=== PATIENT | female | born 1990 | race African-American/Black ===

== ENCOUNTER 2019-07-04 11:58 | Inpatient (IN) | payer OTHER ==
[2019-07-04] MEDS ORDERED: Azithromycin 500 MG VIAL ONE (12:35)
[2019-07-04 12:50] VITALS: BMI 35.9
--- NOTE | 2019-07-04 12:50 | HP ---
TIME OF ADMISSION: 1225 hours. REASON FOR ADMISSION: Rupture of membranes, active labor, 38 weeks' gestation, prior section x3. HISTORY OF PRESENT ILLNESS: Ms. Castillo is a 29-year-old, G4, P3. She had limited OB care with myself at [facility] early in with one visit at 23 weeks' gestation. She had care for the rest of her in [facility] after returning for an illness with her mother. She reports rupture of membranes and contractions and is noted on initial exam to be 5 to 6 cm and in active labor with a category 1 tracing. DRIVING SCHOOL INSTRUCTOR HISTORY: Noted. The patient had three prior sections at 13, 15, and 18. Initial one was for suspected macrosomia and unfavorable cervix by myself at [place], 8 pounds 14 ounces infant. Subsequent infants were 9 pounds 8 ounces and 9 pounds 10 ounces. They were delivered in [place]. The patient's blood type is O positive, antibody negative. Group B strep not done. Rubella immune. VDRL nonreactive. Hepatitis B, GC and chlamydia negative. 50 g is normal by her report. The patient had a positive urine drug screen for cannabinoids in early . PAST MEDICAL HISTORY: Denies. PAST SURGICAL HISTORY: C-sections and ACL. ALLERGIES: DENIES. MEDICATIONS: vitamins. SOCIAL HISTORY: Denies tobacco, alcohol, or IV drug use. FAMILY HISTORY: Noncontributory. REVIEW OF SYSTEMS: Noncontributory. PHYSICAL EXAMINATION: GENERAL: Black female, in no acute distress. VITAL SIGNS: Temperature 98.8, respirations 18, blood pressure 132/85, and pulse 85. HEENT: Within normal limits. LUNGS: Clear to auscultation bilaterally. HEART: Regular rhythm. ABDOMEN: Soft and nontender. Estimated weight 9.5 pounds. GENITOURINARY: Vulva without lesions. Vagina, bloody discharge and clear fluid. Cervix; 6, 80, -1, cephalic. EXTREMITIES: Without clubbing, cyanosis, or edema. monitoring reveals category 1 tracing with pulse in the 150s with positive accelerations, no decelerations, and active contractions. IMPRESSION: Prior section at 38 to 39 weeks' gestation by reasonable criteria with active labor and rupture of membranes. PLAN: Repeat section. Zithromax and Ancef for antibiotic prophylaxis per protocol. DVT prophylaxis with sequential compression devices. Job ID: [id number]
[2019-07-04] MEDS ORDERED: hydrALAZINE 20 MG/ML VIAL SLOW IVP PRN ×2 (12:52→17:05)
[2019-07-04] MEDS ORDERED: Lactated Ringer's 1,000 ML IV SCH ×2 (12:52)
[2019-07-04] MEDS ORDERED: Promethazine HCl 25 MG/ML VIAL IM PRN ×3 (12:52→17:05)
[2019-07-04] MEDS ORDERED: Ondansetron PF 4 MG/2 ML Vial IVP PRN ×3 (12:52→17:05)
[2019-07-04] MEDS ORDERED: Butorphanol Tartrate 1 MG/ML VIAL SLOW IVP PRN (12:52)
[2019-07-04] MEDS ORDERED: CEFAZOLIN 2 GM in Premix Bag 1 BAG IVPB ONE (13:00)
[2019-07-04] MEDS ORDERED: Azithromycin 500 MG in Sodium Chloride 0.9% 250 ML 250 ML IVPB SCH (13:00)
[2019-07-04] MEDS ORDERED: Bicitra 30 ML UDCUP PO SCH (13:00)
[2019-07-04] MEDS ORDERED: Dexamethasone 4 mg/ml Vial ONE (13:08)
[2019-07-04] MEDS ORDERED: MORPHINE 5 MG/10 ML PF VIAL ONE (13:08)
[2019-07-04] MEDS ORDERED: Oxytocin 10 UNITS/ML VIAL ONE ×2 (13:08→14:00)
[2019-07-04] MEDS ORDERED: PHENYLEPHRINE-NS 100 MCG/ML 10 ML SYRINGE ONE (13:08)
[2019-07-04] MEDS ORDERED: Ondansetron PF 4 MG/2 ML Vial ONE (13:08)
[2019-07-04 13:11] LABS: Hemoglobin 11.3 g/dL (12.0-16.0); Mean Corpuscular HGB CONC 34.1 g/dL (32.0-36.0); Mean Corpuscular Hemoglobin 32.8 pg (27.0-31.0); Mean Corpuscular Volume 96.2 fL (78.0-98.0); Mean Platelet Volume 6.9 fL (7.4-10.4); Platelet Count 160 thou/uL (130-400); RBC Distribution Width 11.9 % (11.5-14.5); Red Blood Cell (RBC) Count 3.43 mill/uL (4.20-5.40); White Blood Cell (WBC) Count 11.6 thou/uL (4.8-10.8)
[2019-07-04] MEDS ORDERED: FLU VACC QS2019-20(6MOS UP)/PF 60 MCG/0.5 ML SYRINGE IM ONE (13:15)
[2019-07-04 13:49] LABS: HBSAg Index 0.16 S/CO (0-0.99); Hep B Surf Ag Non-Reactive S/CO (NonReactive); Syphilis Antibody Nonreactive (Nonreactive)
[2019-07-04 13:55] LABS: HIV (1/2) Antibody/Antigen Non-Reactive (NonReactive)
[2019-07-04] MEDS ORDERED: HYDROmorphone 2 MG/ML VIAL SLOW IVP PRN (14:17)
[2019-07-04] MEDS ORDERED: L&D-Morphine 4 MG/ML VIAL SLOW IVP PRN (14:17)
[2019-07-04] MEDS ORDERED: diphenhydrAMINE 50 MG/ML VIAL IVP PRN (14:17)
[2019-07-04] MEDS ORDERED: Promethazine HCl 25 MG SUPP PR PRN (14:17)
[2019-07-04] MEDS ORDERED: Meperidine HCl/PF 25 MG/ML VIAL SLOW IVP PRN (14:17)
[2019-07-04] MEDS ORDERED: Naloxone HCl 0.4 mg/ml Vial IVP PRN ×2 (14:17)
[2019-07-04] MEDS ORDERED: Naloxone HCl 0.4 mg/ml Vial IV PRN (14:17)
[2019-07-04] MEDS ORDERED: Ondansetron HCl/PF 4 MG/2 ML Vial IVP PRN (14:17)
[2019-07-04] MEDS ORDERED: Communication Order-Pharmacy FS SCH (14:30)
[2019-07-04] MEDS ORDERED: Ketorolac Tromethamine 30 MG/ML VIAL IVP SCH (14:30)
[2019-07-04 14:41] LABS: Medtox Reader # READER 4
[2019-07-04 14:42] LABS: Amphetamine Not Detected (NotDetected); Barbiturates Screen Not Detected (NotDetected); Benzodiazepine Screen Not Detected (NotDetected); Cocaine Metabolite Screen Not Detected (NotDetected); Medtox Control Line Valid? VALID (VALID); Methadone Not Detected (NotDetected); Methamphetamine Not Detected (NotDetected); Opiate Screen Not Detected (NotDetected); Oxycodone Screen Not Detected (NotDetected); Phencyclidine (PCP) Not Detected (NotDetected); THC/Cannabinoid Screen Not Detected (NotDetected); Tricyclic Screen Not Detected (NotDetected)
--- NOTE | 2019-07-04 15:03 | OP ---
DATE OF PROCEDURE: 07/04/2019 PREOPERATIVE DIAGNOSIS: 38-39 weeks gestation, prior section x3 with rupture of membranes, in active labor. POSTOPERATIVE DIAGNOSIS: 38-39 weeks gestation, prior section x3 with rupture of membranes, in active labor. PROCEDURE PERFORMED: Repeat low-transverse section without extension. INSULATION BOARD HEAD SAW OPERATOR: Obed Crowell, PGY-3 [address] [facility]. ANESTHESIA: Subarachnoid block, Jermain Olivo MD BLOOD LOSS: EBL pending. MEDICATIONS: 2 g Ancef and 500 Zithromax pre-incision. DVT PROPHYLAXIS: SCDs. DRAINS: Browne to gravity. SPECIMENS REMOVED: Placenta with three-vessel cord. No pathology. OPERATIVE FINDINGS: 1. Vigorous male , cephalic presentation, 8 and 9 , 7 pounds 9 ounces, to nursery. 2. Normal-appearing uterus, tubes, and ovaries bilaterally. 3. Hemostasis, clear urine. COUNTS: Correct at the end of the procedure. DISPOSITION: To recovery room, in good condition. DESCRIPTION OF PROCEDURE: The patient presented in active labor with spontaneous rupture of membranes. She had limited care in [place] but reported she had unremarkable care in [facility]. She was taken to the operating room, where subarachnoid block was achieved without difficulty. She was prepped and draped in the usual manner. Previous Pfannenstiel incision incised sharply and carried down the fascia, was extended superiorly and laterally with curved Paul scissors. Rectus was dissected off sharply, superiorly, and inferiorly, divided in the midline, peritoneum entered bluntly taking care to avoid trauma to the underlying viscera. Zachary O retractor placed inside vesicouterine peritoneal fold, identified an active lower uterine segment, identified low-transverse hysterotomy, incision made above the level of the vesicouterine peritoneal fold and extended superiorly and laterally with finger fractionation. was noted to be in OP presentation and head was elevated in the hysterotomy, the rest of the infant delivered. Cord clamped, cut, and handed off to Dr. Samia Bear, choir singer in attendance. Usual cord blood sample was obtained. The placenta was removed manually and the uterus was left inside the abdomen. Hysterotomy was noted to be without extension and closed using a running locking #1 Monocryl suture x1 layer. The gutters were irrigated out bilaterally and reinspection of the hysterotomy revealed it to be dry. The Zachary O retractor was removed. Rectus was inspected, noted to be dry. Counts were correct x1. Fascia reapproximated using running continuous 0 PDS suture x2. Subcutaneous tissue irrigated, rendered hemostatic with Bovie cautery, reapproximated using a 2-0 plain gut, skin reapproximated using a 4-0 Monocryl subcuticular and Dermabond. The patient was taken to recovery room in good condition. Job ID: [id number]
[2019-07-04] MEDS ORDERED: Ketorolac Tromethamine 30 MG/ML VIAL ONE (15:47)
[2019-07-04] MEDS: Ketorolac Tromethamine 30 MG/ML VIAL IVP PRN ×2 (15:49→22:05)
[2019-07-04] MEDS ORDERED: Acetaminophen 325 MG TAB PO PRN (17:05)
[2019-07-04] MEDS ORDERED: Lanolin Ointment 7 GM TUBE TOP PRN (17:05)
[2019-07-04] MEDS ORDERED: Bisacodyl 10 MG SUPP PR PRN (17:05)
[2019-07-04] MEDS ORDERED: NS / Oxytocin 40 units/1000ml 1,000 ML IV SCH (17:05)
[2019-07-04] MEDS ORDERED: Adacel (T-DAP) 0.5 ML SYRINGE IM ONE (17:05)
[2019-07-04] MEDS ORDERED: diphenhydrAMINE 25 MG CAP PO PRN (17:05)
[2019-07-04] MEDS: Lactated Ringer's 1,000 ML IV SCH (17:28)
[2019-07-04] MEDS: Simethicone Chewable 80 MG TAB PO PRN (22:01)
[2019-07-04] MEDS: Docusate Calcium (SURFAK) 240 MG CAP PO SCH (22:01)
[2019-07-05] MEDS ORDERED: Zolpidem Tartrate 5 MG TAB PO PRN (02:30)
[2019-07-05] MEDS: HYDROcodone/Acetaminophen 5/325 mg Tablet PO PRN ×6 (03:39→21:53)
[2019-07-05] MEDS: Lactated Ringer's 1,000 ML IV SCH ×3 (03:48→16:48)
[2019-07-05] MEDS: Simethicone Chewable 80 MG TAB PO PRN ×3 (05:04→19:24)
[2019-07-05] MEDS: Ibuprofen 800 MG TAB PO SCH ×3 (05:04→21:53)
[2019-07-05 06:35] LABS: Hemoglobin 9.7 g/dL (12.0-16.0); Mean Corpuscular HGB CONC 34.3 g/dL (32.0-36.0); Mean Corpuscular Hemoglobin 33.2 pg (27.0-31.0); Mean Platelet Volume 6.9 fL (7.4-10.4); Platelet Count 128 thou/uL (130-400); RBC Distribution Width 12.1 % (11.5-14.5); Red Blood Cell (RBC) Count 2.93 mill/uL (4.20-5.40); White Blood Cell (WBC) Count 11.3 thou/uL (4.8-10.8)
--- NOTE | 2019-07-05 07:26 | PRG ---
DATE OF SERVICE: 07/05/2019 TIME OF SERVICE: 0710 hours. SUBJECTIVE: Ms. Castillo is postoperative day #1, status post repeat section x4. Hematocrit has gone from 33 to 28. She has no complaints. OBJECTIVE: VITAL SIGNS: Stable. Afebrile. Normal blood pressure. Good urine output. LUNGS: Clear to auscultation bilaterally. HEART: Regular rhythm. ABDOMEN: Soft and nontender. No rebound or guarding. Incision intact and dry. EXTREMITIES: No clubbing, cyanosis, or edema. IMPRESSION: Doing well, status post day #1. PLAN: Routine care. Probable discharge on 07/06. The patient's [place] and ibuprofen prescription already sent to [facility]. Job ID: [id number]
[2019-07-05] MEDS: Prenatal Vitamin 1 TAB PO SCH (08:52)
[2019-07-05] MEDS: Docusate Calcium (SURFAK) 240 MG CAP PO SCH ×2 (08:52→21:53)
[2019-07-05] MEDS ORDERED: FLU VACC QS2019-20(6MOS UP)/PF 60 MCG/0.5 ML SYRINGE IM ONE (15:15)
[2019-07-06] MEDS: HYDROcodone/Acetaminophen 5/325 mg Tablet PO PRN ×4 (03:35→17:15)
[2019-07-06] MEDS: Lactated Ringer's 1,000 ML IV SCH ×3 (03:38→17:14)
[2019-07-06] MEDS: Ibuprofen 800 MG TAB PO SCH ×3 (05:08→19:50)
[2019-07-06] MEDS: Prenatal Vitamin 1 TAB PO SCH (07:56)
[2019-07-06] MEDS: Docusate Calcium (SURFAK) 240 MG CAP PO SCH ×2 (07:56→19:50)
[2019-07-06] MEDS: Simethicone Chewable 80 MG TAB PO PRN (07:59)
--- NOTE | 2019-07-06 08:26 | DIS ---
DATE OF ADMISSION: 07/04/2019 DATE OF DISCHARGE: 07/06/2019 ADMITTING DIAGNOSES: 1. Intrauterine at 38 weeks. 2. Rupture of membranes. 3. Previous section x3. DISCHARGE DIAGNOSES: 1. Intrauterine at 38 weeks. 2. Rupture of membranes. 3. Previous section x3. PROCEDURE: Repeat lower transverse section. CONSULTATIONS: None. HOSPITAL COURSE: The patient is a 29-year-old, G4, now P4, female, presenting to Labor and Delivery with rupture of membranes at 38 weeks' gestation and ultimately had a repeat . For complete details, please refer the operative note. The patient's postoperative course has been uncomplicated. She is tolerating p.o., voiding on her own, having decreased lochia and good pain control. She is now postoperative day #2. PHYSICAL EXAMINATION: VITAL SIGNS: This morning; blood pressure is 128/79, temperature 97.9, and pulse is 72. GENERAL: She appears to be in no acute distress. She is alert and oriented, cooperative and pleasant to interact with. Fundus is firm. EXTREMITIES: Nontender. Nonedematous. Incision is clean, dry, and intact with suture and Dermabond. Her hemoglobin is 9.7, hematocrit 28.4, and platelets of 128,000. The patient is being discharged to home. She has instructions to follow up with Dr. Purvis in 2 weeks or sooner if she experiences fever, increasing pain, or bleeding, incision drainage or redness. She has been given instructions to limit her lifting to 15 pounds for the next 4 to 6 weeks and prescriptions are being provided by Dr. Purvis through the electronic system. Job ID: [id number]
[2019-07-07] MEDS: HYDROcodone/Acetaminophen 5/325 mg Tablet PO PRN ×2 (02:58→08:13)
[2019-07-07] MEDS: Ibuprofen 800 MG TAB PO SCH (04:26)
[2019-07-07] MEDS: Lactated Ringer's 1,000 ML IV SCH ×2 (04:35→07:44)
[2019-07-07] MEDS: Prenatal Vitamin 1 TAB PO SCH (08:13)
[2019-07-07] MEDS: Simethicone Chewable 80 MG TAB PO PRN (08:13)
[2019-07-07] MEDS: Docusate Calcium (SURFAK) 240 MG CAP PO SCH (08:13)
[2019-07-07 08:30] VITALS: BP 134/74; TEMP 98.1
== END 2019-07-07 14:25 | disposition home or self-care (01) | DRG 788 ==
LOC: L&D/OP 11:58 → L&D 12:32 → 3SW 17:21
PROVIDERS: ADMIT Obstetrics & Gynecology; ATTEND Obstetrics & Gynecology
PROC: 10D00Z1 Extraction of Products of Conception, Low, Open Approach (ICD-10-PCS; principal; 2019-07-04)
DX: O34.219 Maternal care for unspecified type scar from previous cesarean delivery (principal); Z3A.38 38 weeks gestation of pregnancy; Z37.0 Single live birth; O42.92 Full-term premature rupture of membranes, unspecified as to length of time between rupture and onset of labor
CPT/HCPCS: 36415; 51702; 80306; 85027; 86780; 86850; 86900; 86901; 87340; 87389; 88307; 99285; J0456; J0690; J1100; J1885; J2274; J2405; J2590

== ENCOUNTER 2024-01-02 20:52 | Emergency (ER) | payer OTHER, SELFPAY ==
[2024-01-02 21:28] LABS: #Basophils Less than 0.03 10x3/uL (0.0-0.2); %Basophils 0.2 % (0.0-1.0); %Eosinophils 0.5 % (0.0-10.0); %Lymphocytes 16.6 % (21.0-51.0); %Monocytes 5.6 % (0.0-10.0); %Neutrophils 76.8 % (42.0-75.0); Hematocrit 32.2 % (36.0-47.0); Hemoglobin 10.6 g/dL (12.0-16.0); Mean Corpuscular HGB CONC 32.9 g/dL (32.0-36.0); Mean Corpuscular Hemoglobin 30.9 pg (27.0-31.0); Mean Corpuscular Volume 93.9 fL (78.0-98.0); Platelet Count 199 10x3/uL (130-400); RBC Distribution Width 13.2 % (11.5-14.5); Red Blood Cell (RBC) Count 3.43 mill/uL (4.20-5.40)
[2024-01-02 21:45] LABS: ALT (SGPT) 7 U/L (8-55); AST (SGOT) 12 U/L (5-34); Albumin 3.1 g/dL (3.5-5.0); Alkaline Phosphatase 71 U/L (40-110); Anion Gap 14 mmol/L (10-20); BUN (Urea Nitrogen) 7 mg/dL (7.0-18.7); Bilirubin, Total 0.3 mg/dL (0.2-1.2); Calc. Creatinine Clearance 0 mL/min (70-130); Calcium 8.4 mg/dL (7.8-10.44); Carbon Dioxide 17 mmol/L (22-29); Chloride 109 mmol/L (98-107); Estimated GFR 113; Globulin 3.9 g/dL (2.4-3.5); Glucose 102 mg/dL (70-105); Potassium 3.6 mmol/L (3.5-5.1); Sodium 136 mmol/L (136-145)
== END 2024-01-02 21:50 | disposition left against medical advice (07) ==
LOC: ERS 20:52
DX: Z53.21 Procedure and treatment not carried out due to patient leaving prior to being seen by health care provider (principal)
CPT/HCPCS: 36415; 80053; 84702; 85025; 86850; 86900; 86901